=== PATIENT | female | born 1985 | race African-American/Black ===

== ENCOUNTER 2019-02-18 17:03 | Emergency (ER) | payer BC | END 2019-02-18 17:45 | disposition home or self-care (01) | LOC: JERFT 17:03 ==

== ENCOUNTER 2020-05-08 11:30 | Emergency (ER) | payer BC ==
--- NOTE | 2020-05-08 11:47 | PDOC ---
History of Present Illness - General Chief Complaint: Urinary Problem Stated Complaint: I have a uti Time Seen by Provider: 05/08/20 11:32 History Source: Patient Exam Limitations: No Limitations - History of Present Illness Initial Comments: 05/08/20 11:46 35YOF with multiple prior UTIs who p/w 2 days of burning on urination and feeling of inability to completely empty her bladder, along with mild LLQ pain. She notes this feels the same as her prior UTIs and she started taking Azo and Tylenol yesterday with relief. She notes Keflex normally clears up her UTIs. Denies any chance of being as she had her LMP 1 week ago but is sexually active and no control. Denies f/c/n/v/d/c, back pain, chest pain, SOB, vaginal bleeding or discharge, or other symptoms. Past History - Medical History Allergies/Adverse Reactions: Allergies Allergy/AdvReac Type Severity Reaction Status Date / Time No Known Allergies Allergy Verified 02/18/19 17:10 Home Medications: Ambulatory Orders NK [No Known Home Medication] 02/18/19 - Psycho-Social/Smoking History Smoking History: Current every day smoker Have you smoked in the past 12 months: Yes Number of Cigarettes Smoked Daily: 5 Review of Systems - Review of Systems Able to Perform ROS?: Yes Comments:: 05/08/20 11:50 GEN: no fever, chills, malaise, or generalized weakness HEENT: no ear pain, congestion, sore throat, vision change, or eye pain CV: no chest pain, palpitations, lightheadedness, syncope, or edema RESP: no SOB, wheezing, or cough GI: no abdominal pain, nausea, vomiting, diarrhea, constipation, or rectal bleed : dysuria, urgency, no hematuria, vaginal bleeding, or discharge MSK: no muscle weakness or pain, no joint swelling or pain NEURO: no headache, vertigo, numbness, tingling, or focal weakness PSYCH: no SI, HI, or behavior change SKIN: no jaundice, rash, lesions, or unexplained bruises ROS otherwise negative except as noted in HPI *Physical Exam - Physical Exam 05/08/20 11:52 GENERAL: very well-appearing, very pleasant, A/Ox4, no distress, answers questions appropriately, obese, cafe assistant at bedside HEENT: PERRLA, EOMI, moist mucous membranes NECK/BACK: no midline ttp, no spinal step-off or deformity, no hematoma, full ROM, neck supple CARDIOVASCULAR: regular rate/rhythm, no MGR, strong peripheral pulses, capillary refill <2 seconds, extremities wwp, no edema LUNGS/RESPIRATORY: no respiratory distress, CTAB GI/ABDOMEN: symmetric [id number], normoactive BS, soft, no ttp including no ttp of LLQ or suprapubic regions, no midline pulsatile masses : no CVA tenderness MSK/EXTREMITIES: no muscle atrophy, no acute deformity SKIN: warm and dry, no pallor, no jaundice, no rash, no pathologic-appearing bruising, no skin breakdown, no cuts, no lesions NEUROLOGICAL: GCS 15, CN II-XII grossly intact, 5/5 strength proximally and distally, no facial droop Medical Decision Making - Medical Decision Making 05/08/20 11:53 35 YOF with h/o prior UTI who p/w dysuria which she notes is same as prior UTI. Initial Vital Signs Temp Pulse Resp BP Pulse Ox 98.3 F 59 L 18 129/71 100 05/08/20 11:31 05/08/20 11:31 05/08/20 11:31 05/08/20 11:31 05/08/20 11:31 Most likely UTI without complication. Otherwise possibly interstitial cystitis. Unlikely pyelonephritis given normal vitals and lack of CVA tenderness and jairo ent being very well appearing. Unlikely GI pathology given that the patient has no associated n/v/d/c. Unlikely other [facility] pathology as patient denies , minimal LLQ abdominal pain and no tenderness. Will get initial UA and UCx and U- preg and if no clear UTI will consider more extensive w/u. 05/08/20 12:19 Laboratory Tests 05/08/20 05/08/20 11:39 11:39 Urine Color Yellow Urine Appearance Clear Urine pH 5.5 Urine Protein Negative Urine Glucose (UA) Negative Urine Ketones Negative Urine Blood 1+ H Urine Nitrite Negative Urine Bilirubin Negative Urine Urobilinogen 0.2 Ur Leukocyte Esterase Negative Urine HCG, Qual Negative Patient's UA without e/o UTI. Bimanual pelvic without focal tenderness, CMT, or other abnormality. No bleeding, no discharge, os palpated closed, normal exam otherwise. Patient going to [facility] for TVUS r/o ovarian cyst, torsion, other [facility] pathology. Discharge - Discharge Information Problems reviewed: Yes Clinical Impression/Diagnosis: LLQ pain, Dysuria Condition: Stable Disposition: HOME - Admission No - Follow up/Referral - Patient Discharge Instructions Additional Instructions: You were seen in the ER for painful urination. We did blood and urine labs and there were no other abnormalities. We did an ultrasound and there was no evidence of any emergency. We sent a urine culture, and you will be called within a few days if there are any abnormal results. After our assessment, we do not believe you are having a medical emergency at this time, and we believe you are safe to go home. Please take over the counter pain medications for pain, following the instructions on the medication label. For painful urination, please take pyridium (azo) which you can get [id number] at the pharmacy. This will turn your urine orange and it is nothing to worry about while you are taking this medication. Follow up with your primary doctor in 1-3 days. Also follow up with your [facility] doctor. Call their clinic [facility], tell them you were seen in the ER, and tell them you need an appointment. Please come back to the ER at any time, 24 hours a day, for any new or worsening symptoms, like worsened pain, increased or foul-smelling discharge, fever, genital pain or swelling, or other emergency symptoms. If you are having severe or life threatening symptoms, or symptoms that make it unsafe to drive or have someone drive you, please call 911. - Post Discharge Activity Work/Back to School Note: Back to Work
[2020-05-08 11:54] VITALS: BP 129/71; PULSE 59; TEMP 98.3; BMI 37.5
[2020-05-08 12:42] LABS: EPITHELIAL CELLS MODERATE /hpf
[2020-05-08 12:43] LABS: URINE MUCUS 2+
== END 2020-05-08 13:35 | disposition home or self-care (01) ==
LOC: FER 11:30
DX: R10.32 Left lower quadrant pain (principal); R30.0 Dysuria
CPT/HCPCS: 76830-TC; 81003; 81015; 84703; 87086; 99284-25

== ENCOUNTER 2020-07-05 20:27 | Emergency (ER) | payer BC ==
[2020-07-05 20:42] VITALS: BP 116/66; PULSE 85; TEMP 99; BMI 38.4
--- OUTSIDE RECORDS SUMMARY | 2020-07-05 20:42 | XMS ---
:1985 Author Organization [email or web address] [facility] Support Name Relationship Address Phone DAVID TAYLOR [address] [place] [address] [facility] Unavailable [address] [place] [address] [employer], [employer] [address] [facility] [place] [address] DAVID TAYLOR [address] [place] [address] Re-disclosure Warning The records that you are about to access may contain information from federally- assisted alcohol or drug abuse programs. If such information is present, then the following federally mandated warning applies: This information has been disclosed to you from records protected by federal confidentiality rules (42 CFR part 2). The federal rules prohibit you from making any further disclosure of this information unless further disclosure is expressly permitted by the written consent of the person to whom it pertains or as otherwise permitted by 42 CFR part 2. A general authorization for the release of medical or other information is NOT sufficient for this purpose. The Federal rules restrict any use of the information to criminally investigate or prosecute any alcohol or drug abuse patient.The records that you are about to access may contain highly sensitive health information, the redisclosure of which is protected by Article 27-F of the [place] State Public Health law. If you continue you may haveaccess to information: Regarding HIV / AIDS; Provided by facilities licensed or operated by the [facility] Office of Mental Health; or Provided by the [facility] Office for People With Developmental Disabilities. If such information is present, then the following [facility] mandated warning applies: This information has been disclosed to you from confidential records which are protected by state law. State law prohibits you from making any further disclosure of this information without the specific written consent of the person to whom it pertains, or as otherwise permitted by law. Any unauthorized further disclosure in violation of state law may result in a fine or senior care sentence or both. A general authorization for the release of medical or other information is NOT sufficient authorization for further disclosure. Encounters Encounter Providers Location Date Indications Data Source(s ) Emergency H 06/27/2019 03:16:00 [facility] PM EDT - 06/27/2019 [facility] [place] 05:57:00 PM EDT Patient discharged. Insurance Providers Payer name Policy type Policy ID Covered Covered Policy Plan / Coverage green party ID green party's [place] [employer] type relationship to [place] PPO [id number] SP [id number] O BLUE CROSS O [id number] [facility] Individual 0 Self 0 Employees (Giiv) Policy - [facility] [id number] SP [id number] [place] Plan [place] [id number] S [id number] [facility] Care Problems, Conditions, and Diagnoses Code Display Name Description Problem Type Effective Data Dates Source(s) F17.210 Nicotine NICOTINE Diagnosis 06/27/2019 [facility] dependence, DEPENDENCE, 03:16:00 PM Medical cigarettes, CIGARETTES, EDT Center uncomplicated UNCOMPLICATED Y99.0 Civilian activity CIVILIAN ACTIVITY Diagnosis 06/27/2019 [facility] done for income or DONE FOR INCOME OR 03:16:00 PM Medical pay PAY EDT Center Y92.69 Other specified OTH INDUSTRIAL AND Diagnosis 06/27/2019 [facility] industrial and CONSTRUCTION AREA 03:16:00 PM [facility] construction area PLACE EDT Center as the place of occurrence of the external cause Y93.9 Activity, ACTIVITY, Diagnosis 06/27/2019 [facility] unspecified UNSPECIFIED 03:16:00 PM Medical EDT Center W23.0XXA Caught, crushed, CAUGHT, CRUSH, Diagnosis 06/27/2019 [facility] jammed, or pinched JAMMED, OR PINCHED 03:16:00 PM Medical between moving BETW MOVING EDT Center objects, initial OBJECTS, INIT encounter S60.222A Contusion of left CONTUSION OF LEFT Diagnosis 06/27/2019 [facility] hand, initial HAND, INITIAL 03:16:00 PM Medical encounter ENCOUNTER EDT Center Social History Code Duration Value Status Description Data Source(s ) Smoking 06/27/2019 03:57:00 Daily Smoker completed Daily Smoker S [facility] EDT Center Smoking 06/27/2019 03:47:00 Daily Smoker completed Daily Smoker S [facility] EDT Center Vital Signs ID Date Data Source UNK Name Value Range Interpretation Code Description Data Source(s) Body weight 90.373434 kg 90.063271 [facility] Body temperature 37.212617 37.327168 [facility] Respiratory rate 17 /min 17 /min [facility] Oxygen saturation 100 % 100 % [facility] Paulina ruiz in Arterial blood [facility] by Pulse oximetry Heart rate 89 /min 89 /min [facility] Body height 157.258590 157.356373 cm [facility] Diastolic blood 73 mm[Hg] 73 mm[Hg] [facility] Systolic blood 121 mm[Hg] 121 mm[Hg] [facility] Body mass index 36.5 kg/m2 36.5 kg/m2 Psychiatric (BMI) [Ratio] Medical [facility]
--- NOTE | 2020-07-05 20:44 | PDOC ---
History of Present Illness - General Chief Complaint: Urinary Problem Stated Complaint: UTI Time Seen by Provider: 07/05/20 20:42 History Source: Patient Exam Limitations: No Limitations - History of Present Illness Initial Comments: 07/05/20 21:04 This is a 35-year-old female who comes in complaining of some mild dysuria with urination. Patient denies any fevers or chills. Patient denies any abdominal pain nausea vomiting or diarrhea. Patient has had symptoms x2 weeks. Patient saw her OB about 1 week ago but did not tell her OB about the symptoms. Patient now comes in this evening and wanting to be tested for urinary tract infection. Patient denies any back or flank pain. Patient said at her OB appointment 1 week ago she did have STD testings and they all came back negative. Patient otherwise that she is not had any sexual activities for over a month. Patient denies any vaginal discharge or odor. Allergies: as per nursing notes Past Medical History: none Social history: Lives with family. No smoking. No alcohol. No illicit drugs. Surgical history: None General: No fevers or chills, no weakness, no weight loss HEENT: No change in vision. No sore throat,. No ear pain CardioVascular: no chest discomfort. No shortness of breath Respiratory:No cough, or wheezing. Gastrointestinal: no nausea, vomiting, diarrhea or constipation, No rectal bleeding Genitourinary: + dysuria, no hematuria, or frequency Musculoskeletal: No joint or muscle pain or swelling Neurologic: No headache, vertigo, dizziness or loss of consciousness Psychiatric: nor depression Skin: No rashes or easy bruising Endocrine: no increased thirst or abnormal weight change Allergic: no skin or latex allergy All other systems reviewed and normal GENERAL: The patient is awake, alert, and fully oriented, in no acute distress. HEENT:Head is normal with no signs of trauma. Eyes: Pupils equal, round and reactive to light, Ears, and Throat are normal. Neck is supple. No Ly mphadenopathy. EXTREMITIES:atraumatic, Normal range of motion, no edema. NEUROLOGICAL: Normal speech, normal gait. PSYCH: Normal mood, normal affect. SKIN: Warm, Dry, normal turgor, no rashes or lesions noted. Assessment and plan: This is a 35-year-old female with dysuria. Patient's urine was negative for an infection. Patient was discharged and referred back to her OB for further evaluation follow-up Past History - Medical History Allergies/Adverse Reactions: Allergies Allergy/AdvReac Type Severity Reaction Status Date / Time No Known Allergies Allergy Verified 07/05/20 20:33 Home Medications: Ambulatory Orders Ascorbic Acid [Vitamin C] 1,000 mg PO DAILY 07/05/20 Cranberry Conc/C/Bacill Coag [Azo Cranberry Tablet] 1 each PO BID PRN 07/05/20 COPD: No - Reproductive History Is Patient Now?: No - Immunization History Immunization Up to Date: Yes - Psycho-Social/Smoking History Smoking History: Current every day smoker Have you smoked in the past 12 months: Yes Number of Cigarettes Smoked Daily: 10 Information on smoking cessation initiated: Yes - Substance Abuse Hx (Audit-C & DAST Scrn) How often the patient has a drink containing alcohol: Monthly or less Score: In Men: 4 or > Positive; In Women: 3 or > Positive: 1 Screen Result (Pos requires Nsg. Audit-10AR): Negative In the last yr the pt used illegal drug/Rx for NonMed reason: No Score: Yes response is considered Positive: 0 Screen Result (Positive result requires Nsg. DAST-10): Negative *Physical Exam - Vital Signs Last Vital Signs Temp Pulse Resp BP Pulse Ox 99.0 F 85 16 116/66 100 07/05/20 20:32 07/05/20 20:32 07/05/20 20:32 07/05/20 20:32 07/05/20 20:32 Discharge - Discharge Information Problems reviewed: Yes Clinical Impression/Diagnosis: Dysuria Condition: Good Disposition: HOME - Admission No - Follow up/Referral - Patient Discharge Instructions Additional Instructions: Return to the emergency department immediately with ANY new, persistent or worsening symptoms. Continue any medications as previously prescribed by your physician. You should follow up with your primary doctor as soon as possible regarding today's emergency department visit. . Please make sure your doctor reviews the results of your emergency evaluation. Thank you for coming to the Emergency Department today for your care. It was a pleasure to see you today. Please note that your evaluation is INCOMPLETE until you follow-up with your doctor. - Post Discharge Activity
[2020-07-05 21:11] LABS: EPITHELIAL CELLS MODERATE /hpf; URINE TRICHOMONAS FEW
== END 2020-07-05 21:10 | disposition home or self-care (01) ==
LOC: FER 20:27
DX: R30.0 Dysuria (principal)
CPT/HCPCS: 81003; 81015; 84703; 87086; 99283-25

== ENCOUNTER 2020-10-16 15:55 | Emergency (ER) | payer BC ==
[2020-10-16 16:02] VITALS: BP 119/74; PULSE 66; TEMP 99; BMI 40.2
[2020-10-16] MEDS ORDERED: ONDANSETRON 4 MG/2 ML VIAL IVPUSH ONE (16:30)
[2020-10-16] MEDS ORDERED: LACTATED RINGERS SOLUTION 1000 ML INFUS.BAG IV ONE (16:30)
[2020-10-16 16:38] LABS: HCG,QUALITATIVE URINE Positive
[2020-10-16] MEDS ORDERED: ONDANSETRON 4 MG/2 ML VIAL ONE (16:46)
[2020-10-16 17:00] LABS: BASO % 2.3 % (0-2.0); EOS % 0.6 % (0-4.5); HEMATOCRIT 41.9 % (32.4-45.2); HEMOGLOBIN 14.2 GM/dl (10.7-15.3); MCH 31.9 pg (25.7-33.7); MEAN CELL VOLUME 93.7 fl (80-96); MEAN PLT VOLUME 7.7 fl (7.5-11.1); MONO % 4.9 % (3.8-10.2); NEUT % 71.2 % (42.8-82.8); PLATELET COUNT 438 K/MM3 (134-434); RBC 4.47 M/mm3 (3.60-5.2); RDW 12.1 % (11.6-15.6); WHITE BLOOD COUNT 13.4 K/mm3 (4.0-10.8)
[2020-10-16 17:02] LABS: ALBUMIN 4.1 g/dl (3.4-5.0); BILIRUBIN,TOTAL 0.6 mg/dl (0.2-1); CALCIUM 9.1 mg/dl (8.5-10); CREATININE 0.6 mg/dl (0.55-1.3); POTASSIUM 3.6 mmol/L (3.5-5.1)
[2020-10-16 17:42] LABS: EPITHELIAL CELLS FEW /hpf
[2020-10-16] MEDS ORDERED: CEPHALEXIN MONOHYDRATE 500 MG CAPSULE (UD) PO ONE (18:00)
[2020-10-16] MEDS ORDERED: CEPHALEXIN MONOHYDRATE 500 MG CAPSULE (UD) ONE (18:25)
== END 2020-10-16 18:50 | disposition home or self-care (01) ==
LOC: FER 15:55
PROC: 3E033GC Introduction of Other Therapeutic Substance into Peripheral Vein, Percutaneous Approach (ICD-10-PCS; principal; 2020-10-16)
DX: R11.2 Nausea with vomiting, unspecified (principal); Z3A.01 Less than 8 weeks gestation of pregnancy
CPT/HCPCS: 36415; 76830-TC; 80053; 81003; 81015; 83690; 84703; 85025; 87086; 99284-25; C9803; U0003

== ENCOUNTER 2023-09-29 14:40 | Emergency (ER) | payer BC, OTHER ==
[2023-09-29 14:51] VITALS: BP 118/77; PULSE 89; RESP 16; TEMP 97.8; BMI 41.1
== END 2023-09-29 15:54 | disposition home or self-care (01) ==
LOC: FER 14:40
DX: O26.891 Other specified pregnancy related conditions, first trimester (principal); R10.9 Unspecified abdominal pain; O99.511 Diseases of the respiratory system complicating pregnancy, first trimester; R11.0 Nausea; Z3A.01 Less than 8 weeks gestation of pregnancy
CPT/HCPCS: 81025; 99283-25

== ENCOUNTER 2024-05-10 07:12 | Inpatient (IN) | payer BC, OTHER ==
[2024-05-10 08:50] VITALS: BMI 51.2
[2024-05-10 09:01] LABS: INR 0.93 (0.83-1.09); PROTHROMBIN TIME (PATIENT) 10.7 SEC (9.7-13.0)
[2024-05-10 09:07] LABS: BASO % 0.4 % (0-2.0); EOS % 1.3 % (0-4.5); HEMATOCRIT 28.9 % (32.4-45.2); HEMOGLOBIN 9.6 GM/dL (10.7-15.3); MCH 28.9 pg (25.7-33.7); MCHC 33.1 g/dl (32.0-36.0); MEAN CELL VOLUME 87.3 fl (80-96); MEAN PLT VOLUME 7.5 fl (7.5-11.1); NEUT % 66.3 % (42.8-82.8); PLATELET COUNT 372 10^3/uL (134-434); RBC 3.31 M/mm3 (3.60-5.2); WHITE BLOOD COUNT 10.4 K/mm3 (4.0-10.0)
[2024-05-10] MEDS: ELECTROLYTE-148 SOLN 1,000 ML IV SCH (09:30)
[2024-05-10 09:35] LABS: POTASSIUM 4.2 mmol/L (3.5-5.1)
[2024-05-10 09:36] LABS: CALCIUM 8.6 mg/dL (8.5-10.1)
[2024-05-10 09:37] LABS: ALBUMIN 2.3 g/dl (3.4-5.0); BLOOD UREA NITROGEN 11.2 mg/dL (7-18)
[2024-05-10] MEDS ORDERED: OXYTOCIN 30 UNITS in 0.9% NS 30 UNIT/500 ML INFUS.BAG IVPB ONE ×2 (09:38→15:42)
[2024-05-10 09:40] LABS: CREATININE 0.6 mg/dL (0.55-1.3)
[2024-05-10 09:42] LABS: BILIRUBIN,TOTAL 0.1 mg/dL (0.2-1); TOT PROT 5.5 g/dl (6.4-8.2)
[2024-05-10] MEDS: OXYTOCIN 30 UNITS in 0.9% NS 30 UNIT/500 ML INFUS.BAG IVPB SCH (09:42)
[2024-05-10] MEDS ORDERED: ONDANSETRON 4 MG/2 ML VIAL IVPUSH PRN (15:27)
[2024-05-10] MEDS ORDERED: FENTANYL CITRATE/PF 50 MCG/ML VIAL ONE (15:54)
[2024-05-10] MEDS ORDERED: ONDANSETRON 4 MG/2 ML VIAL ONE ×2 (15:54)
[2024-05-10] MEDS ORDERED: morphine SULFATE/PF 1 MG/2 ML (2cc Syringe - QUVA) ONE (15:54)
[2024-05-10] MEDS ORDERED: IBUPROFEN 800 MG/8 ML IJ IVPB PRN (17:31)
[2024-05-10] MEDS: OXYTOCIN 20 UNITS in 0.9% NS 20 UNIT/1,000 ML INFUS.BAG IV SCH (18:50)
[2024-05-10] MEDS ORDERED: OXYTOCIN 20 UNITS in 0.9% NS 20 UNIT/1,000 ML INFUS.BAG IV ONE (18:53)
[2024-05-10] MEDS: SENNOSIDES/DOCUSATE COMBO (SENNA PLUS) TABLET (UD) PO SCH (22:28)
[2024-05-10] MEDS: ACETAMINOPHEN 1000 MG/100 ML BAG IVPB PRN (22:28)
[2024-05-11 07:43] LABS: BASO % 0.5 % (0-2.0); EOS % 0.8 % (0-4.5); HEMATOCRIT 28.2 % (32.4-45.2); HEMOGLOBIN 9.2 GM/dL (10.7-15.3); MCH 28.8 pg (25.7-33.7); MCHC 32.5 g/dl (32.0-36.0); MEAN CELL VOLUME 88.5 fl (80-96); MEAN PLT VOLUME 7.4 fl (7.5-11.1); MONO % 6.2 % (3.8-10.2); NEUT % 76.5 % (42.8-82.8); PLATELET COUNT 312 10^3/uL (134-434); RBC 3.19 M/mm3 (3.60-5.2); WHITE BLOOD COUNT 13.8 K/mm3 (4.0-10.0)
[2024-05-11] MEDS: PRENATAL VITAMINS W/ FOLIC ACID TABLET (FP) PO SCH (09:57)
[2024-05-11] MEDS: IBUPROFEN 600 MG TABLET (FP) PO PRN (12:51)
[2024-05-11] MEDS: diphenhydrAMINE HCL 25 MG CAPSULE (FP) PO PRN (12:52)
[2024-05-11] MEDS: oxyCODONE HCL 5 MG TABLET PO PRN (21:40)
[2024-05-11] MEDS: SIMETHICONE 80 MG TAB.CHEW (FP) PO PRN (21:41)
[2024-05-12] MEDS: BISACODYL 10 MG SUPP.RECT RC PRN (10:33)
[2024-05-12] MEDS: ACETAMINOPHEN 325 MG TABLET (FP) PO PRN (19:55)
[2024-05-12 22:19] VITALS: RESP 18; TEMP 98.4
[2024-05-13 11:29] VITALS: BP 130/70; PULSE 90
== END 2024-05-13 13:00 | disposition home or self-care (01) | DRG 787 ==
LOC: JLDR 07:12 → J3W 20:25
PROVIDERS: ADMIT Specialist; ATTEND Specialist
PROC: 10D00Z1 Extraction of Products of Conception, Low, Open Approach (ICD-10-PCS; principal; 2024-05-10)
PROC: 3E0334Z Introduction of Serum, Toxoid and Vaccine into Peripheral Vein, Percutaneous Approach (ICD-10-PCS; 2024-05-10)
DX: O24.424 Gestational diabetes mellitus in childbirth, insulin controlled (principal); O36.0930 Maternal care for other rhesus isoimmunization, third trimester, not applicable or unspecified; O36.63X0 Maternal care for excessive fetal growth, third trimester, not applicable or unspecified; Z3A.38 38 weeks gestation of pregnancy; Z37.0 Single live birth
CPT/HCPCS: 36415; 80053; 85025; 85461; 85610; 85730; 86780; 86850; 86870; 86880; 86900; 86901; 86902; 88307-TC; 94010; 96372; J0131; J2790